=== PATIENT | male | born 1945 | race Caucasian/White ===

== ENCOUNTER → 2020-05-11 | Day surgery (SDC) | payer OTHER ==
[~2020-05-11] MED LIST: ANTIVERT25 MG PO; ASPIRIN EC81 MG PO; GINKGO BILOBA60 M1 PO; HYDROCHLOROT PO; IMDUR 30MG TABL30 MG PO; IRON PO; LASIX40 MG PO; LIPITOR 10MG TA10 MG PO; METFORMIN HCL500 MG PO; MULTIVITAMIN PO; NEURONTIN300 MG PO; NIACIN ER500 MG PO; NITROQUIK SL0.4 MG SL; NORCO 5-325 TA1 EACH PO; PEPCID AC20 MG PO; PRINIVIL10 MG PO; SYNTHROID25 MCG PO; XANAX0.5 MG PO
[2020-05-11 10:40] LABS: HCT 38.9 % (42.0-52.0); HGB 12.2 g/dl (13.2-18.0); MCH 28.9 pg (25.0-31.0); MCHC 31.4 g/dL (32.0-36.0); MCV 92.2 fL (78.0-100.0); RBC 4.22 M/uL (4.70-6.00); RDW 13.8 % (11.5-14.0); WBC 2.9 K/uL (4.0-10.5)
[2020-05-11 11:09] LABS: ALBUMIN 3.6 g/dL (3.4-5.0); BILIRUBIN - TOTAL 0.8 mg/dL (0.2-1.0); BUN/CREAT RATIO (CALC) 9.4 RATIO; CREATININE 1.39 mg/dL (0.67-1.17); POTASSIUM 3.1 mmol/L (3.5-5.1); TOTAL PROTEIN 7.6 g/dL (6.4-8.2)
== END | disposition home or self-care (01) ==
LOC: FAS 09:48
PROVIDERS: Surgery
DX: I87.2 Venous insufficiency (chronic) (peripheral) (principal); F41.9 Anxiety disorder, unspecified; K21.9 Gastro-esophageal reflux disease without esophagitis; E11.9 Type 2 diabetes mellitus without complications; E03.9 Hypothyroidism, unspecified; I10 Essential (primary) hypertension; F32.9 Major depressive disorder, single episode, unspecified; E78.5 Hyperlipidemia, unspecified; F17.200 Nicotine dependence, unspecified, uncomplicated; Z85.038 Personal history of other malignant neoplasm of large intestine; Z79.82 Long term (current) use of aspirin; Z79.84 Long term (current) use of oral hypoglycemic drugs; Z79.899 Other long term (current) drug therapy; Z88.5 Allergy status to narcotic agent
CPT/HCPCS: 36415; 80053; 93005; J2704; J7120

== ENCOUNTER → 2021-04-19 | Day surgery (SDC) | payer OTHER ==
[~2021-04-19] VITALS: Ht 188 cm; Wt 81.6 kg
[~2021-04-19] MED LIST changes: +INDERAL20 MG PO; +ONDANSETRON ODT8 MG PO; +PERCOCET 5-3251 EACH PO; +UROCIT-K10 MEQ PO
[2021-04-19 07:44] LABS: HCT 37.8 % (42.0-52.0); HGB 12.3 g/dl (13.2-18.0); MCHC 32.5 g/dL (32.0-36.0); MCV 92.2 fL (78.0-100.0); MPV 9.2 fL (6.0-9.5); RBC 4.1 M/uL (4.70-6.00); RDW 14.1 % (11.5-14.0); WBC 3.1 K/uL (4.0-10.5)
[2021-04-19 08:08] LABS: ALBUMIN 3.1 g/dL (3.4-5.0); BILIRUBIN - TOTAL 0.6 mg/dL (0.2-1.0); BUN/CREAT RATIO (CALC) 6.5 RATIO; CREATININE 1.38 mg/dL (0.67-1.17); GLOBULIN (CALCULATION) 3.7 g/dL; POTASSIUM 2.8 mmol/L (3.5-5.1); TOTAL PROTEIN 6.8 g/dL (6.4-8.2)
== END | disposition home or self-care (01) ==
LOC: FAS 06:47
PROVIDERS: Surgery
DX: K40.30 Unilateral inguinal hernia, with obstruction, without gangrene, not specified as recurrent (principal); I10 Essential (primary) hypertension; E11.9 Type 2 diabetes mellitus without complications; E78.00 Pure hypercholesterolemia, unspecified; E78.5 Hyperlipidemia, unspecified; K21.9 Gastro-esophageal reflux disease without esophagitis; E03.9 Hypothyroidism, unspecified; K74.60 Unspecified cirrhosis of liver; F41.9 Anxiety disorder, unspecified; M19.90 Unspecified osteoarthritis, unspecified site; Z93.3 Colostomy status; Z88.8 Allergy status to other drugs, medicaments and biological substances; Z79.82 Long term (current) use of aspirin; Z79.84 Long term (current) use of oral hypoglycemic drugs; Z79.899 Other long term (current) drug therapy; Z85.038 Personal history of other malignant neoplasm of large intestine
CPT/HCPCS: 36415; 80053; 93005; C1781; J0690; J2405; J2704; J3010; J7120

== ENCOUNTER 2021-05-06 13:26 | Emergency (ER) | payer OTHER ==
[2021-05-06 14:50] LABS: BILIRUBIN NEGATIVE (NEGATIVE); BLOOD NEGATIVE Ery/uL (NEGATIVE); CLARITY CLEAR (CLEAR); COLOR YELLOW (YELLOW); GLUCOSE (U) 1+ mg/dL (NORMAL); LEUKOCYTES NEGATIVE Leu/uL (NEGATIVE); NITRITE NEGATIVE (NEGATIVE); PROTEIN NEGATIVE (NEGATIVE); SPECIFIC GRAVITY 1.025 (1.001-1.030); UROBILINOGEN 0.2 mg/dL (0.2-1.0)
[2021-05-06 17:41] LABS: CREATININE 1.49 mg/dL (0.67-1.17); POTASSIUM 3.5 mmol/L (3.5-5.1)
== END 2021-05-06 18:18 | disposition home or self-care (01) ==
LOC: FER 13:26
PROVIDERS: Internal Medicine
DX: R34 Anuria and oliguria (principal); E11.9 Type 2 diabetes mellitus without complications; Z79.84 Long term (current) use of oral hypoglycemic drugs; Z88.5 Allergy status to narcotic agent
CPT/HCPCS: 36415; 80048; 81003; 99284